=== PATIENT | female | born 1995 | race African-American/Black ===

== ENCOUNTER 2016-08-27 17:52 | Emergency (ER) | payer OTHER ==
[2016-08-27 18:01] VITALS: TEMP 97.9; BMI 22.8
--- NOTE | 2016-08-27 19:28 | PDOC ---
History of Present Illness - General Chief Complaint: Vaginal Bleeding Stated Complaint: PCP SENT/ECTOPIC Time Seen by Provider: 08/27/16 19:21 History Source: Patient - History of Present Illness Initial Comments: 08/27/16 22:32 21-year-old female 2 para 0 presents to the emergency department complaining of suprapubic abdominal discomfort 6 hours. Pain is described as 3/ 10 dull nonradiating intermittent discomfort. Patient denies any nausea/vomiting , fever/chills/diarrhea, flank pains, chest pain, shortness of breath, vaginal bleed or discharge, urinary symptoms: Frequency/urgency/hesitancy, burning upon urination. Patient was seen at an urgent care center today and was sent to the emergency department for ?ectopic. LMP: 08/02/2016 Past History - Past Medical History Allergies/Adverse Reactions: Allergies Allergy/AdvReac Type Severity Reaction Status Date / Time No Known Allergies Allergy Verified 08/27/16 17:58 Home Medications: Ambulatory Orders Albuterol Sulfate Inhaler - [Ventolin Hfa Inhaler -] 1 - 2 inh PO QID 08/27/16 Asthma: Yes - Psycho/Social/Smoking Cessation Hx Suicidal Ideation: No Smoking History: Never smoked Review of Systems - Review of Systems Able to Perform ROS?: Yes Comments:: 08/27/16 22:31 CONSTITUTIONAL: Absent: fever, chills, diaphoresis, generalized weakness, malaise, loss of appetite HEENT: Absent: rhinorrhea, nasal congestion, throat pain, throat swelling, difficulty swallowing, mouth swelling, ear pain, eye pain, visual Changes CARDIOVASCULAR: Absent: chest pain, loss of consciousness, palpitations, irregular heart rate, peripheral edema RESPIRATORY: Absent: cough, shortness of breath, dyspnea with exertion, orthopnea, wheezing, stridor, hemoptysis GASTROINTESTINAL: +suprapubic abdominal pain Absent: abdominal distension, nausea, vomiting, diarrhea, constipation, melena, hematochezia GENITOURINARY: Absent: dysuria, frequency, urgency, hesitancy, hematuria, flank pain, genital pain MUSCULOSKELETAL: Absent: myalgia, arthralgia, joint swelling SKIN: Absent: rash, itching, pallor HEMATOLOGIC/IMMUNOLOGIC: Absent: easy bleeding, easy bruising, lymphadenopathy, frequent infections ENDOCRINE: Absent: unexplained weight gain, unexplained weight loss, heat intolerance, cold intolerance NEUROLOGIC: Absent: headache, focal weakness or paresthesias, dizziness, unsteady gait, seizure, mental status changes, bladder or bowel incontinence PSYCHIATRIC: Absent: anxiety, depression, suicidal or homicidal ideation, hallucinations. Is the patient limited Thai proficient: No *Physical Exam - Vital Signs Last Vital Signs Temp Pulse Resp BP Pulse Ox 97.9 F 75 19 108/64 99 08/27/16 17:58 08/27/16 17:58 08/27/16 17:58 08/27/16 17:58 08/27/16 17:58 - Physical Exam Comments: 08/27/16 22:31 GENERAL: Well developed, well nourished. Awake and alert. No acute distress. HEENT: Normocephalic, atraumatic. PERRLA, EOMI. No conjunctival pallor. Sclera are non- icteric. Moist mucous membranes. Oropharynx is clear. NECK: Supple. Full ROM. No JVD. Carotid pulses 2+ and symmetric, without bruits. No thyromegaly. No lymphadenopathy. CARDIOVASCULAR: Regular rate and rhythm. No murmurs, rubs, or gallops. Distal pulses are 2+ and symmetric. PULMONARY: No evidence of respiratory distress. Lungs clear to auscultation bilaterally. No wheezing, rales or rhonchi. ABDOMINAL: Soft. Non-tender. Non-distended. No rebound or guarding. No organomegaly. Normoactive bowel sounds. MUSCULOSKELETAL Normal range of motion at all joints. No bony deformities or tenderness. No CVA tenderness. EXTREMITIES: No cyanosis. No clubbing. No edema. No calf tenderness. SKIN: Warm and dry. Normal capillary refill. No rashes. No jaundice. NEUROLOGICAL: Alert, awake, appropriate. Cranial nerves 2-12 intact. No deficits to light touch and temperature in face, upper extremities and lower extremities. No motor deficits in the in face, upper extremities and lower extremities. Normoreflexic in the upper and lower extremities. Normal speech. Toes are down- going bilaterally. Gait is normal without ataxia. PSYCHIATRIC: Cooperative. Good eye contact. Appropriate mood and affect. Pelvic: External genitalia normal without lesions. Vaginal vault is clear without blood or discharge. Cervix is long and closed. ED Treatment Course - LABORATORY CBC & Chemistry Diagram: 08/27/16 19:32 08/27/16 19:32 *DC/Admit/Observation/Transfer Diagnosis at time of Disposition: Threatened - Discharge Dispostion Disposition: HOME Condition at time of disposition: Stable Admit: No - Referrals Referrals: Laura Crooks MD [Staff Physician] - - Patient Instructions Printed Discharge Instructions: DI for Threatened Additional Instructions: Pelvic rest Increase fluids You must return to the emergency department for another blood tests: Beta hCG. Today's beta hCG is 1457.3 Your preliminary transvaginal ultrasound this evening shows that there are no intrauterine gestational sac. Heterogeneous echotexture of the endometrium in the lower uterine segment suggestive blood clots. There is also minimal fluid within the cervical canal. Small amount of free fluid in the cul-de-sac. Both ovaries appear unremarkable. No adnexal mass is identified.
--- NOTE | 2016-08-27 19:40 | PDOC ---
*Physical Exam - Vital Signs Last Vital Signs Temp Pulse Resp BP Pulse Ox 97.9 F 75 19 108/64 99 08/27/16 17:58 08/27/16 17:58 08/27/16 17:58 08/27/16 17:58 08/27/16 17:58 ED Treatment Course - LABORATORY CBC & Chemistry Diagram: 08/27/16 19:32 08/27/16 19:32 Medical Decision Making - Medical Decision Making 08/27/16 19:40 Pt seen by the Advanced Practice Provider under my direct supervision Ancillary studies reviewed I agree with plan as outlined by the Advanced Practice Provider MINE Saldana *DC/Admit/Observation/Transfer Diagnosis at time of Disposition: Threatened - Discharge Dispostion Disposition: HOME Condition at time of disposition: Stable - Referrals Referrals: Laura Crooks MD [Staff Physician] - - Patient Instructions Printed Discharge Instructions: DI for Threatened Additional Instructions: Pelvic rest Increase fluids You must return to the emergency department for another blood tests: Beta hCG. Today's beta hCG is 1457.3 Your preliminary transvaginal ultrasound this evening shows that there are no intrauterine gestational sac. Heterogeneous echotexture of the endometrium in the lower uterine segment suggestive blood clots. There is also minimal fluid within the cervical canal. Small amount of free fluid in the cul-de-sac. Both ovaries appear unremarkable. No adnexal mass is identified.
[2016-08-27 19:53] LABS: BASOPHIL 0.7 % (0-2.0); EOSINOPHIL 3.7 % (0-4.5); MCH 30.7 pg (25.7-33.7); MCHC 33.8 g/dl (32.0-36.0); MEAN CELL VOLUME 90.7 fl (80-96); MEAN PLT VOLUME 9.1 fl (7.5-11.1); NEUTROPHILS 53.4 % (42.8-82.8); PLATELET COUNT 209 K/MM3 (134-434); RDW 12.6 % (11.6-15.6); WHITE BLOOD COUNT 9.1 K/mm3 (4.0-10.0)
[2016-08-27 20:37] LABS: ALBUMIN 4.4 g/dl (3.4-5.0); ANION GAP 11 (8-16); BILIRUBIN,TOTAL 0.2 mg/dL (0.2-1.0); CALCIUM 9.7 mg/dL (8.5-10.1); CO2 23 mmol/L (21-32); COCKROFT - GAULT 125.7575; CREATININE 0.7 mg/dL (0.55-1.02); GLUCOSE,RANDOM 80 mg/dL (74-106); SGOT/AST 18 U/L (15-37); SGPT/ALT 16 U/L (12-78); TOT PROT 7.8 g/dl (6.4-8.2)
[2016-08-27 20:38] LABS: ALK PHOS 95 U/L (45-117)
[2016-08-27 21:15] LABS: URINE APPEARANCE SLCLOUDY; URINE BILIRUBIN NEGATIVE (NEGATIVE); URINE COLOR YELLOW; URINE GLUCOSE (UA) NEGATIVE (NEGATIVE); URINE KETONE NEGATIVE (NEGATIVE); URINE LEUK ESTERASE NEGATIVE (NEGATIVE); URINE NITRITE NEGATIVE (NEGATIVE); URINE UROBILINOGEN NEGATIVE E.U./dl (0.2-1.0)
[2016-08-27 21:16] LABS: URINE BLOOD 3+ (NEGATIVE); URINE PROTEIN 1+ (NEGATIVE)
[2016-08-27 21:19] LABS: URINE MUCUS FEW; URINE RBC 18 /hpf (0-3); URINE WBC 3 /hpf (3-5)
[2016-08-27 23:10] VITALS: BP 110/67; PULSE 66
== END 2016-08-27 23:10 | disposition home or self-care (01) ==
LOC: JER 17:52
DX: O20.0 Threatened abortion (principal); Z3A.00 Weeks of gestation of pregnancy not specified
CPT/HCPCS: 36415; 76817-TC; 80053; 81003; 81015; 84702; 85025; 86850; 86900; 86901; 99284-25

== ENCOUNTER 2016-08-29 20:31 | Emergency (ER) | payer OTHER ==
[2016-08-29 20:40] VITALS: BMI 22.8
--- NOTE | 2016-08-29 20:48 | PDOC ---
History of Present Illness - General History Source: Patient Exam Limitations: No Limitations - History of Present Illness Initial Comments: 08/29/16 22:14 The patient is a 21 year old female, A1 who is currently 3 weeks with a significant past medical history of asthma who presents to the emergency department with vaginal bleeding and abdominal cramping. She ranks her abdominal pain a 7/10 in pain intensity. She reports being in this ER with similar symptoms about 48 hours prior with a concern for an ectopic . She reports having heavy bleeding continuing since her last office visit. She denies recent fevers, chills, headache or dizziness. She denies recent nausea, vomit, diarrhea or constipation. She denies recent dysuria, frequency, urgency or hematuria. She denies recent chest pain or shortness of breath. She denies any care. Allergies: NKA Past surgical history: None reported. Social history: Former smoker.. Denies EtOH use and recreational drug use. <Dov Gómez - Last Filed: 08/29/16 22:14> <Rayna Heath - Last Filed: 08/30/16 02:49> <Kayla Hall - Last Filed: 08/31/16 01:44> - General Chief Complaint: Vaginal Bleeding Stated Complaint: FOLLOW UP/[facility] [place] Time Seen by Provider: 08/29/16 20:46 Past History <oDv Gómez - Last Filed: 08/29/16 22:14> <Rayna Heath - Last Filed: 08/30/16 02:49> - Past Medical History Asthma: Yes - Reproductive History (#): 2 Therapeutic (s) & number: No Spontaneous : 1 - Immunization History Immunization Up to Date: Yes - Psycho/Social/Smoking Cessation Hx Suicidal Ideation: No Smoking History: Never smoked Have you smoked in the past 12 months: No Information on smoking cessation initiated: No Hx Alcohol Use: No Drug/Substance Use Hx: No <Kayla Hall - Last Filed: 08/31/16 01:44> - Past Medical History Allergies/Adverse Reactions: Allergies Allergy/AdvReac Type Severity Reaction Status Date / Time No Known Allergies Allergy Verified 08/29/16 20:40 Home Medications: Ambulatory Orders Albuterol Sulfate Inhaler - [Ventolin Hfa Inhaler -] 1 - 2 inh PO QID 08/27/16 Review of Systems - Review of Systems Able to Perform ROS?: Yes Comments:: 08/29/16 22:14 CONSTITUTIONAL: Absent: fever, chills, diaphoresis, generalized weakness, malaise, loss of appetite HEENT: Absent: rhinorrhea, nasal congestion, throat pain, throat swelling, difficulty swallowing, mouth swelling, ear pain, eye pain, visual Changes CARDIOVASCULAR: Absent: chest pain, syncope, palpitations, irregular heart rate, lightheadedness , peripheral edema RESPIRATORY: Absent: cough, shortness of breath, dyspnea with exertion, orthopnea, wheezing, stridor, hemoptysis GASTROINTESTINAL: +abdominal cramping. Absent: nausea, vomiting, diarrhea, constipation, melena, hematochezia GENITOURINARY: +vaginal bleeding. Absent: dysuria, frequency, urgency, hesitancy, hematuria, flank pain, genital pain MUSCULOSKELETAL: Absent: myalgia, arthralgia, joint swelling SKIN: Absent: rash, itching, pallor HEMATOLOGIC/IMMUNOLOGIC: Absent: easy bleeding, easy bruising, lymphadenopathy, frequent infections ENDOCRINE: Absent: unexplained weight gain, unexplained weight loss, heat intolerance, cold intolerance NEUROLOGIC: Absent: headache, focal weakness or paresthesias, dizziness, unsteady gait, seizure, mental status changes, bladder or bowel incontinence PSYCHIATRIC: Absent: anxiety, depression, suicidal or homicidal ideation, hallucinations. <Dov Gómez - Last Filed: 08/29/16 22:14> *Physical Exam - Vital Signs Last Vital Signs Temp Pulse Resp BP Pulse Ox 98.4 F 81 18 121/51 100 08/29/16 20:34 08/29/16 20:34 08/29/16 20:34 08/29/16 20:34 08/29/16 20:34 - Physical Exam Comments: 08/29/16 22:14 PE - Comprehensive GENERAL: Well developed, well nourished, slender. Awake and alert. No acute distress. HEENT: Normocephalic, atraumatic. PERRLA, EOMI. No conjunctival pallor. Sclera are non- icteric. Moist mucous membranes. Oropharynx is clear. NECK: Supple. Full ROM. No JVD. Carotid pulses 2+ and symmetric, without bruits. No thyromegaly. No lymphadenopathy. CARDIOVASCULAR: Regular rate and rhythm. No murmurs, rubs, or gallops. Distal pulses are 2+ and symmetric. PULMONARY: No evidence of respiratory distress. Lungs clear to auscultation bilaterally. No wheezing, rales or rhonchi. ABDOMINAL: Soft. Non-tender. Non-distended. No rebound or guarding. No organomegaly. Normoactive bowel sounds. MUSCULOSKELETAL Normal range of motion at all joints. No bony deformities or tenderness. No CVA tenderness. EXTREMITIES: No cyanosis. No clubbing. No edema. No calf tenderness. SKIN: Warm and dry. Normal capillary refill. No rashes. No jaundice. NEUROLOGICAL: Alert, awake, appropriate. Cranial nerves 2-12 intact. No deficits to light touch and temperature in face, upper extremities and lower extremities. No motor deficits in the in face, upper extremities and lower extremities. Normoreflexic in the upper and lower extremities. Normal speech. Toes are down- going bilaterally. Gait is normal without ataxia. PSYCHIATRIC: Cooperative. Good eye contact. Appropriate mood and affect. <Dov Gómez - Last Filed: 08/29/16 22:14> - Vital Signs Last Vital Signs Temp Pulse Resp BP Pulse Ox 98.4 F 81 18 121/51 100 08/29/16 20:34 08/29/16 20:34 08/29/16 20:34 08/29/16 20:34 08/29/16 20:34 <Rayna Heath - Last Filed: 08/30/16 02:49> - Vital Signs Last Vital Signs Temp Pulse Resp BP Pulse Ox 98.4 F 81 18 121/51 100 08/29/16 20:34 08/29/16 20:34 08/29/16 20:34 08/29/16 20:34 08/29/16 20:34 <Kayla Hall - Last Filed: 08/31/16 01:44> ED Treatment Course - ADDITIONAL ORDERS Additional order review: Laboratory Results 08/29/16 21:16 Beta HCG, Quant 1740.3 <Rayna Heath - Last Filed: 08/30/16 02:49> Medical Decision Making - Medical Decision Making 08/30/16 01:57 21 yo female presents for repeat bhcg -seen on 08/27/16 for threatened AB and had US that did not show an IUP and her bhcg was about 1450 -tonight she returned and her bhcg is 1700 but her trans vaginal US still did not show an IUP but there was concern about left ovarian ectopic -the pt had vaginal cramping and some bleeding but no severe pain Case discussed w Dr Davis who recommended methotrexate and follow up in 1 week for repeat bhcg and US -pt told of the dangers of an ectopic preg and the 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 <Dov Gómez - Last Filed: 08/29/16 22:14> <Rayna Heath - Last Filed: 08/30/16 02:49> <Kayla Hall - Last Filed: 08/31/16 01:44> Diagnosis at time of Disposition: Ectopic Qualifiers: Location of ectopic : ovarian Intrauterine status: without intrauterine Qualified Code(s): O00.20 - Ovarian without intrauterine - Discharge Dispostion Disposition: HOME Condition at time of disposition: Stable - Patient Instructions Printed Discharge Instructions: DI for Ectopic Additional Instructions: IT IS VERY IMPORTANT TO FOLLOW UP WITH THE [employer]PECTING SUPERVISOR IN ONE WEEK. YOU MAY FOLLOWUP AT THE CLINIC AT [address] [place] [address] [phone] OR RETURN TO THE EMERGENCY DEPARTMENT YOU MUST HAVE THE BHCG AND ULTRASOUND REPEATED
[2016-08-30] MEDS ORDERED: METHOTREXATE SODIUM/PF 25 MG/ML VIAL IM ONE (01:48)
[2016-08-30 03:20] VITALS: BP 122/73; PULSE 80; TEMP 98.7
== END 2016-08-30 03:21 | disposition home or self-care (01) ==
LOC: JER 20:31
PROC: 3E023GC Introduction of Other Therapeutic Substance into Muscle, Percutaneous Approach (ICD-10-PCS; principal; 2016-08-29)
DX: O00.20 Ovarian pregnancy without intrauterine pregnancy (principal); Z3A.00 Weeks of gestation of pregnancy not specified
CPT/HCPCS: 36415; 76817-TC; 84702; 99283-25; J9260

== ENCOUNTER 2016-09-14 15:08 | Emergency (ER) | payer OTHER ==
[2016-09-14 15:13] VITALS: BP 110/64; PULSE 86; TEMP 98.3; BMI 22.1
--- NOTE | 2016-09-14 16:59 | PDOC ---
History of Present Illness - General Chief Complaint: [facility] [place] Stated Complaint: LAB VARIANCE Time Seen by Provider: 09/14/16 15:29 History Source: Patient Exam Limitations: No Limitations - History of Present Illness Travel History: No Initial Comments: 09/14/16 16:11 21-year-old female presents the ED for repeat beta-hCG and ultrasound. As per Dr. Crooks patient on 08/29 did receive methotrexate and had a beta hCG of 1500. Patient went to the office today was concerning since patient still had mild tenderness to the suprapubic region and may require second dose of methotrexate. Patient has no complaints of vaginal bleeding, fever, chills, nausea weakness. Timing/Duration: reports: intermittent Quality: reports: mild, cramping Abdominal Pain Onset Location: reports: suprapubic Pain Radiation: reports: no radiation Activities at Onset: reports: none Aggravating Factors: improves with: None Alleviating Factors: improves with: None Past History - Past Medical History Allergies/Adverse Reactions: Allergies Allergy/AdvReac Type Severity Reaction Status Date / Time No Known Allergies Allergy Verified 09/14/16 15:10 Home Medications: Ambulatory Orders Albuterol Sulfate Inhaler - [Ventolin Hfa Inhaler -] 1 - 2 inh PO QID 08/27/16 Asthma: Yes - Reproductive History Is Patient Now?: Yes (#): 2 Para: 0 Therapeutic (s) & number: No Spontaneous : 1 - Immunization History Immunization Up to Date: Yes - Psycho/Social/Smoking Cessation Hx Suicidal Ideation: No Smoking History: Never smoked Have you smoked in the past 12 months: No Hx Alcohol Use: No Drug/Substance Use Hx: No Patient Lives Alone: No Lives with/in: parents Review of Systems - Review of Systems Able to Perform ROS?: Yes Constitutional: No: Symptoms Reported ABD/GI: Yes: Abdominal cramping : No: Discharge Musculoskeletal: No: Symptoms Reported Integumentary: No: Symptoms Reported Neurological: No: Symptoms reported Hematologic/Lymphatic: No: Symptoms Reported *Physical Exam - Vital Signs Last Vital Signs Temp Pulse Resp BP Pulse Ox 98.3 F 86 18 110/64 98 09/14/16 15:10 09/14/16 15:10 09/14/16 15:10 09/14/16 15:10 09/14/16 15:10 - Physical Exam General Appearance: Yes: Nourished, Appropriately Dressed. No: Apparent Distress HEENT: negative: Pale Conjunctivae Neck: positive: Supple Respiratory/Chest: positive: Lungs Clear, Normal Breath Sounds. negative: Respiratory Distress, Accessory Muscle Use Cardiovascular: positive: Regular Rhythm, Regular Rate. negative: Murmur Gastrointestinal/Abdominal: positive: Soft, Tenderness (mild suprapubic) Musculoskeletal: negative: CVA Tenderness Extremity: positive: Normal Capillary Refill Integumentary: positive: Normal Color, Warm, Moist Neurologic: positive: Motor Strength 5/5 (Ambulatory) ED Treatment Course - ADDITIONAL ORDERS Additional order review: Laboratory Results 09/14/16 15:40 Beta HCG, Quant 959.9 - RADIOLOGY Radiology Studies Ordered: Category Date Time Status <14WKS US [US] Stat Ultrasound 09/14/16 15:29 Taken Medical Decision Making - Medical Decision Making 09/14/16 16:17 Patient here for repeat beta hCG and ultrasound. Patient has no complaints of bleeding but has mild mid suprapubic pain on exam. 09/14/16 17:17 Laboratory Tests 08/29/16 09/14/16 21:16 15:40 Beta HCG, Quant 1740.3 959[address] Crooks and states to give methotrexate 83 mg and to have patient follow up on Tuesday in the office. she will review the ultrasound 09/14/16 17:23 Dr. Crooks called back and states there is a questionable left ectopic and recommend patient have a beta hCG done on Tuesday at the clinic and then follow-up with her in the office on Tuesday. *DC/Admit/Observation/Transfer Diagnosis at time of Disposition: Ectopic of ovary - Discharge Dispostion Disposition: HOME Condition at time of disposition: Good - Referrals Referrals: Laura Crooks MD [Staff Physician] - - Patient Instructions Additional Instructions: Please have your blood work for beta hCG done on Tuesday at the clinic so that Dr. Crooks can review on Tuesday to decide if it was effective or you require surgery. please follow-up with Dr. Crooks next Tuesday. Return sooner if symptoms worsen prior to your Follow-up.
[2016-09-14] MEDS ORDERED: METHOTREXATE SODIUM/PF 25 MG/ML VIAL IM ONE (17:16)
== END 2016-09-14 17:57 | disposition home or self-care (01) ==
LOC: JER 15:08
DX: O00.20 Ovarian pregnancy without intrauterine pregnancy (principal)
CPT/HCPCS: 36415; 76801-TC; 76817-TC; 84702; 99283-25; J9260

== ENCOUNTER 2016-09-22 15:21 | Emergency (ER) | payer OTHER ==
[2016-09-22 15:32] VITALS: BMI 22.6
[2016-09-22 17:33] LABS: BASOPHIL 0.8 % (0-2.0); EOSINOPHIL 5.4 % (0-4.5); MCH 30.6 pg (25.7-33.7); MCHC 33.5 g/dl (32.0-36.0); MEAN CELL VOLUME 91.3 fl (80-96); MEAN PLT VOLUME 8.8 fl (7.5-11.1); NEUTROPHILS 40.4 % (42.8-82.8); PLATELET COUNT 202 K/MM3 (134-434); RDW 12.9 % (11.6-15.6); WHITE BLOOD COUNT 5.1 K/mm3 (4.0-10.0)
[2016-09-22 17:35] LABS: URINE APPEARANCE CLOUDY; URINE BILIRUBIN NEGATIVE (NEGATIVE); URINE BLOOD NEGATIVE (NEGATIVE); URINE COLOR LTYELLOW; URINE GLUCOSE (UA) NEGATIVE (NEGATIVE); URINE KETONE NEGATIVE (NEGATIVE); URINE NITRITE NEGATIVE (NEGATIVE); URINE PROTEIN NEGATIVE (NEGATIVE); URINE UROBILINOGEN NEGATIVE E.U./dl (0.2-1.0)
[2016-09-22 17:47] LABS: URINE LEUK ESTERASE TRACE (NEGATIVE)
[2016-09-22 17:48] LABS: URINE BACTERIA RARE /hpf (NONE SEEN); URINE RBC 1 /hpf (0-3); URINE WBC 4 /hpf (3-5)
[2016-09-22 18:22] LABS: ALBUMIN 3.9 g/dl (3.4-5.0); CALCIUM 9.3 mg/dL (8.5-10.1); GLUCOSE,RANDOM 72 mg/dL (74-106)
[2016-09-22 18:28] LABS: ALK PHOS 87 U/L (45-117); ANION GAP 8 (8-16); BILIRUBIN,TOTAL 0.3 mg/dL (0.2-1.0); CO2 26 mmol/L (21-32); COCKROFT - GAULT 145.6475; CREATININE 0.6 mg/dL (0.55-1.02); SGOT/AST 18 U/L (15-37); SGPT/ALT 15 U/L (12-78); TOT PROT 7.4 g/dl (6.4-8.2)
--- NOTE | 2016-09-22 19:13 | PDOC ---
History of Present Illness - General Chief Complaint: Revisit, Lab Variance Stated Complaint: LAB VARIANCE (PCP SENT) Time Seen by Provider: 09/22/16 15:56 History Source: Patient Exam Limitations: No Limitations - History of Present Illness Initial Comments: 09/22/16 19:11 21-year-old female, 2 para 0, last menstrual period 07/26/2016, was diagnosed with a left adnexal ectopic and has received 2 injections of methotrexate presents to the ER with persistent mild left lower quadrant pain radiating to the back. Patient was seen and evaluated by Dr. Davis of [facility] and referred to the ER for additional testing and an additional dose of methotrexate. Patient denies fever/chills/dysuria/hematuria/nausea/vomiting/ diarrhea. Abdominal pain is mild, intermittent, radiates to the back, without alleviating exacerbating factors. Pain is similar in nature and character to the patient's previous symptoms. REVIEW OF SYSTEMS CONSTITUTIONAL: No fever, no chills, no fatigue EYES: No visual changes ENT: No ear pain, no sore throat CARDIOVASCULAR: No chest pain, no palpitations RESPIRATORY: No cough, no SOB GI: + abdominal pain, no nausea, no vomiting, no constipation, no diarrhea GENITOURINARY: + Left adnexal ectopic ; No dysuria, no frequency, no hematuria MUSKULOSKELETAL: No backpain, no joint pain, no myalgias SKIN: No rash NEURO: No headache EXAMINATION CONSTITUTIONAL: Well-appearing; well-nourished; in no apparent distress HEAD: Normocephalic; atraumatic EYES: PERRL; EOM intact ENMT: External appears normal; normal oropharynx NECK: Supple; non-tender; no cervical lymphadenopathy CARD: Normal S1, S2; no murmurs, rubs, or gallops RESP: Normal chest excursion with respiration; breath sounds clear and equal bilaterally; no wheezes, rhonchi, or rales ABD: Soft, non-distended; + mild left lower pelvic tenderness to deep palpation ; no palpable organomegaly, no palpable hernias; no CVA tenderness bilaterally; EXT: Normal ROM in all four extremities; non-tender to palpation; distal pulses intact SKIN: Warm, dry, no rash NEURO: No focal neurological deficiencies. Past History - Past Medical History Allergies/Adverse Reactions: Allergies Allergy/AdvReac Type Severity Reaction Status Date / Time peanut Allergy Swelling Verified 09/22/16 15:32 Home Medications: Ambulatory Orders Acetaminophen [Tylenol] 650 mg PO DAILY PRN 09/22/16 Ibuprofen [Motrin -] 600 mg PO TID PRN 09/22/16 Asthma: Yes - Reproductive History Is Patient Now?: Yes (#): 2 Para: 0 Cervical CA: No Dysfunctional Uterine Bleeding: No Ectopic : No Endometrial CA: No Polycystic Ovaries: No Therapeutic (s) & number: No (1 etopic) Tubal Ligation: No Spontaneous : 1 - Immunization History Immunization Up to Date: Yes - Psycho/Social/Smoking Cessation Hx Anxiety: No Suicidal Ideation: No Smoking History: Never smoked Have you smoked in the past 12 months: No Hx Alcohol Use: Yes (SOCIAL) Drug/Substance Use Hx: No Substance Use Type: None *Physical Exam - Vital Signs Last Vital Signs Temp Pulse Resp BP Pulse Ox 98.3 F 77 20 113/54 99 09/22/16 15:29 09/22/16 15:29 09/22/16 15:29 09/22/16 15:29 09/22/16 16:19 ED Treatment Course - LABORATORY CBC & Chemistry Diagram: 09/22/16 16:01 09/22/16 16:23 - ADDITIONAL ORDERS Additional order review: Laboratory Results 09/22/16 09/22/16 17:20 16:23 Sodium 138 Potassium 4.3 Chloride 104 Carbon Dioxide 26 Anion Gap 8 BUN 8 Creatinine 0.6 Creat Clearance w eGFR > 60 Random Glucose 72 L Calcium 9.3 Total Bilirubin 0.3 D AST 18 ALT 15 Alkaline Phosphatase 87 Total Protein 7.4 Albumin 3.9 Urine Color Ltyellow Urine Appearance Cloudy Urine pH 5.0 Urine Protein Negative Urine Glucose (UA) Negative Urine Ketones Negative Urine Blood Negative Urine Nitrite Negative Urine Bilirubin Negative Urine Urobilinogen Negative Ur Leukocyte Esterase Trace H Urine RBC 1 Urine WBC 4 Ur Epithelial Cells Many Urine Bacteria Rare 09/22/16 16:01 RBC 4.40 MCV 91.3 MCHC 33.5 RDW 12.9 MPV 8.8 Neutrophils % 40.4 L D Lymphocytes % 46.9 H D Monocytes % 6.5 Eosinophils % 5.4 H Basophils % 0.8 - RADIOLOGY Radiology Studies Ordered: Category Date Time Status TRANSVAGINAL US PREG [US] Stat Ultrasound 09/22/16 16:08 Completed Medical Decision Making - Medical Decision Making 09/22/16 20:51 Patient is well-appearing 21-year-old female with known history of left adnexal ectopic presented for repeat methotrexate injection. Beta-hCG is noted to have been decreased. Transvaginal ultrasound reveals persistent left adnexal mass with trace free fluid. There is no evidence of rupture at this time. Will discharge with ectopic precautions and follow-up. *DC/Admit/Observation/Transfer Diagnosis at time of Disposition: Ectopic of ovary Qualifiers: Intrauterine status: without intrauterine Qualified Code(s) : O00.20 - Ovarian without intrauterine - Discharge Dispostion Disposition: HOME Condition at time of disposition: Stable - Referrals Referrals: Laura Crooks MD [Primary Care Provider] - - Patient Instructions Printed Discharge Instructions: DI for Ectopic
[2016-09-22] MEDS ORDERED: METHOTREXATE SODIUM/PF 25 MG/ML VIAL IM ONE (19:43)
[2016-09-22 20:34] VITALS: BP 115/70; PULSE 69; TEMP 98.2
== END 2016-09-22 20:53 | disposition home or self-care (01) ==
LOC: JER 15:21
PROC: 3E023GC Introduction of Other Therapeutic Substance into Muscle, Percutaneous Approach (ICD-10-PCS; principal; 2016-09-22)
DX: O00.20 Ovarian pregnancy without intrauterine pregnancy (principal)
CPT/HCPCS: 36415; 76817-TC; 80053; 81003; 81015; 84702; 85025; 86850; 86900; 86901; 87086; 99284-25; J9260

== ENCOUNTER → 2016-09-23 | Emergency (ER) | payer OTHER ==
[~2016-09-23] MED LIST: ONDANSETRON 4 MG/2 ML VIAL IVPUSH ONE; ONDANSETRON 4 MG/2 ML VIAL ONE; OXYCODONE/APAP 5/325MG COMBO TABLET ONE; OXYCODONE/APAP 5/325MG COMBO TABLET PO ONE; SODIUM CHLORIDE 0.9% 1000 ML INFUS.BAG IV ONE
[2016-09-23 18:04] VITALS: BMI 22.6
--- NOTE | 2016-09-23 18:54 | PDOC ---
History of Present Illness - General History Source: Patient, Old Records Exam Limitations: No Limitations - History of Present Illness Initial Comments: The patient is a 21 year old female with a significant past medical history of 2 para 0, last menstrual period 07/26/16, who presents to the emergency department today for further evaluation of lower left quadrant pain secondary to ectopic today. The patient states that she was at work today during onset of symptoms. She describes the pain as sharp and constant with intermittent worsening spells. The patient came to this ED yesterday and was discharged home after her Beta HC levels went down. The patient reports history of cramps but denies ever having cramps this severe. She reports associated dizziness but denies any bleed. The patient denies fever, chills, and sweats. The patient denies nausea, vomiting, and diarrhea. The patient denies chest pain, cough, and shortness of breath. PCP: Dr. Nabeel Zepeda [phone] PAST MEDICAL HISTORY: A1 PAST SURGICAL HISTORY: No significant history reported FAMILY HISTORY: No pertinent history reported SOCIAL HISTORY: None reported ALLERGIES: Peanuts MEDICATIONS: 2 doses of methotrexate ( 08/29/16, 09/22/16) <Nicholas Akins - Last Filed: 09/23/16 20:38> <Tonja Bhatia - Last Filed: 09/23/16 21:24> - General Chief Complaint: Pain Stated Complaint: ABDOMINAL PAIN Past History <Nicholas Akins - Last Filed: 09/23/16 20:38> - Past Medical History Asthma: Yes Other medical history: etopic LMP JULY 2016. - Reproductive History (#): 2 Para: 0 Cervical CA: No Dysfunctional Uterine Bleeding: No Ectopic : No Endometrial CA: No Polycystic Ovaries: No Therapeutic (s) & number: No (1 etopic) Tubal Ligation: No Spontaneous : 1 - Immunization History Immunization Up to Date: Yes - Psycho/Social/Smoking Cessation Hx Anxiety: No Suicidal Ideation: No Smoking History: Never smoked Have you smoked in the past 12 months: No Information on smoking cessation initiated: No Hx Alcohol Use: No Drug/Substance Use Hx: No Substance Use Type: None <Tonja Bhatia - Last Filed: 09/23/16 21:24> - Past Medical History Allergies/Adverse Reactions: Allergies Allergy/AdvReac Type Severity Reaction Status Date / Time peanut Allergy Swelling Verified 09/23/16 18:04 Home Medications: Ambulatory Orders Acetaminophen [Tylenol] 650 mg PO DAILY PRN 09/22/16 Ibuprofen [Motrin -] 600 mg PO TID PRN 09/22/16 Review of Systems - Review of Systems Able to Perform ROS?: Yes Comments:: GENERAL/CONSTITUTIONAL: No fever or chills. No weakness. HEAD, EYES, EARS, NOSE AND THROAT: No change in vision. No ear pain or discharge. No sore throat. GASTROINTESTINAL: (+) LLQ abdominal pain. No nausea, vomiting, diarrhea or constipation. GENITOURINARY: No dysuria, frequency, or change in urination. CARDIOVASCULAR: No chest pain or shortness of breath. RESPIRATORY: No cough, wheezing, or hemoptysis. MUSCULOSKELETAL: No joint or muscle swelling or pain. No neck or back pain. SKIN: No rash NEUROLOGIC: No headache, vertigo, loss of consciousness, or change in strength/ sensation. ENDOCRINE: No increased thirst. No abnormal weight change. HEMATOLOGIC/LYMPHATIC: No anemia, easy bleeding, or history of blood clots. ALLERGIC/IMMUNOLOGIC: No hives or skin allergy. <Nicholas Akins - Last Filed: 09/23/16 20:38> *Physical Exam - Vital Signs Last Vital Signs Temp Pulse Resp BP Pulse Ox 98.7 F 87 18 112/76 100 09/23/16 18:02 09/23/16 18:02 09/23/16 18:02 09/23/16 18:02 09/23/16 18:02 - Physical Exam Comments: GENERAL: Awake, alert, and fully oriented, in no acute distress HEAD: No signs of trauma EYES: PERRLA, EOMI, sclera anicteric, conjunctiva clear ENT: Auricles normal inspection, nares patent, Moist mucosa NECK: Normal ROM, supple, no lymphadenopathy, JVD, or masses LUNGS: Breath sounds equal, clear to auscultation bilaterally. No wheezes, and no crackles HEART: Regular rate and rhythm, normal S1 and S2, no murmurs, rubs or gallops ABDOMEN: (+) Suprapubic and lower left quadrant pain on palpation. Soft, normoactive bowel sounds. No guarding, no rebound. No masses EXTREMITIES: Normal range of motion, no edema. No clubbing or cyanosis. No cords, erythema, or tenderness NEUROLOGICAL: Normal speech SKIN: Warm, Dry, normal turgor, no rashes or lesions noted. <Nicholas Akins - Last Filed: 09/23/16 20:38> - Vital Signs Last Vital Signs Temp Pulse Resp BP Pulse Ox 98.7 F 87 18 112/76 100 09/23/16 18:02 09/23/16 18:02 09/23/16 18:02 09/23/16 18:02 09/23/16 18:02 <Tonja Bhatia - Last Filed: 09/23/16 21:24> ED Treatment Course - LABORATORY CBC & Chemistry Diagram: 09/23/16 19:28 09/23/16 19:28 - RADIOLOGY Radiograph Interpretation: EXAM#: TYPE/EXAM: RESULT: [id number] US/TRANSVAGINAL US PREG Left ectopic. Pain. Rule out fracture Pelvis ultrasound, transvesical and transvaginal. The uterus measures 7.7 x 4.3 cm and it appears unremarkable. Endometrial stripe measures 6.5 mm in thickness which is within normal limits. No intrauterine gestation sac is identified. The right ovary measures 3.2 x 1.5 cm with a few small cysts/ follicles and normal vascular flow. Left ovary measures 5.6 x 3.6 cm with a large complex cyst/hemorrhagic cyst again seen measuring 4.6 x 3.1 cm. An adjacent left adnexal masslike density is again seen measuring 3.6 x 2.3 cm that has increased in size since see the prior examination where it measured 2.3 x 1.7 cm. No pole is identified. There is a small amount of free fluid in the cul-de-sac Impression: Persistent complex/hemorrhagic left ovarian cyst measuring 4.6 x 3.1 cm. Persistent left paraovarian/adnexal masslike density that has increased in size since the prior examination, now measuring 3.6 x 2.3 cm compatible with previously described ectopic . A small amount of free fluid in the cul-de-sac has slightly increased since see the prior examination Reported By: Kiana Aviles MD 09/23/162025 <Nicholas Akins - Last Filed: 09/23/16 20:38> - LABORATORY CBC & Chemistry Diagram: 09/23/16 19:28 09/23/16 19:28 - RADIOLOGY Radiology Studies Ordered: Category Date Time Status TRANSVAGINAL US PREG [US] Stat Ultrasound 09/23/16 18:26 Ordered <Tonja Bhatia - Last Filed: 09/23/16 21:24> Medical Decision Making - Medical Decision Making 09/23/16 18:[address] Rodriguez placed. [phone] 09/23/16 18:47 Dr. Rodriguez called into ED. Case discussed. Will wait for studies to come back and will call again. 09/23/16 20:[address] Rodriguez. Case discussed. <Nicholas Akins - Last Filed: 09/23/16 20:38> - Medical Decision Making 09/23/16 18:44 21 yo F ( misscarriage) here with known left sided ectopic, diagnosed on , given 3 doses of methotrexate, most recent yestereday now with worsenign lower abd pain. had crampy feeling, now severe pain, no prior pain this bad. no radiation, comes in waves. did feel dizzy and lightheaded at initial pain. no f/ c no vaginal bleeding. no loc. follows with Dr. Nieto. on exam awake alert. lungs clear. heart RRR no m/r/g. abd soft mild suprapubic ttp, llq ttp. no rebound no guarding. plan r/o worsening ectopic, or failed mtx vs side effects of will d/w Dr. Nieto, labs tvus. bedius us r/o free fluid. 09/23/16 20:54 d/w dr lópez, [facility] continueing to decreased to 4oo's. d/w rosa regarding mild increase size, attributed to bleeding and clot formation within the tube. rosa request dc home if pain controlled and return in 48 hours for rpt hcg and us. d/w pt . given percocet for pain. will take here, would not like rx for percocet will takemotrin at home. <Tonja Bhatia - Last Filed: 09/23/16 21:24> *DC/Admit/Observation/Transfer - Attestations Scribe Attestion: Documentation prepared by Nicholas Akins, acting as medical office technologist for Tonja Bhatia MD. <Nicholas Akins - Last Filed: 09/23/16 20:38> - Discharge Dispostion Admit: No <Tonja Bhatia - Last Filed: 09/23/16 21:24> Diagnosis at time of Disposition: Ectopic - Discharge Dispostion Disposition: HOME Condition at time of disposition: Improved - Referrals Referrals: Laura Crooks MD [Primary Care Provider] - - Patient Instructions Printed Discharge Instructions: Ectopic Additional Instructions: you need to return to emergency room in 48 hours for a repeat blood test and ultrasound. return sooner for worsening pain , severe bleeding, feeling lightheaded or any concerns. you should also follow up with Dr. López next week as scheduled.
[2016-09-23 19:48] LABS: BASOPHIL 0.3 % (0-2.0); EOSINOPHIL 1.3 % (0-4.5); MEAN CELL VOLUME 90.9 fl (80-96); MEAN PLT VOLUME 8.7 fl (7.5-11.1); NEUTROPHILS 66.9 % (42.8-82.8); PLATELET COUNT 196 K/MM3 (134-434); RDW 12.8 % (11.6-15.6); WHITE BLOOD COUNT 7.9 K/mm3 (4.0-10.0)
[2016-09-23 20:05] LABS: ALBUMIN 3.9 g/dl (3.4-5.0); ALK PHOS 82 U/L (45-117); ANION GAP 9 (8-16); BILIRUBIN,TOTAL 0.3 mg/dL (0.2-1.0); CALCIUM 8.9 mg/dL (8.5-10.1); CO2 25 mmol/L (21-32); COCKROFT - GAULT 124.8395; CREATININE 0.7 mg/dL (0.55-1.02); GLUCOSE,RANDOM 72 mg/dL (74-106); SGOT/AST 17 U/L (15-37); SGPT/ALT 15 U/L (12-78); TOT PROT 7.1 g/dl (6.4-8.2)
[2016-09-23 22:13] VITALS: BP 106/66; PULSE 75; TEMP 98.3
== END | disposition home or self-care (01) ==
LOC: JER 17:58
PROC: 3E033GC Introduction of Other Therapeutic Substance into Peripheral Vein, Percutaneous Approach (ICD-10-PCS; principal; 2016-09-23)
DX: O26.891 Other specified pregnancy related conditions, first trimester (principal); Z3A.00 Weeks of gestation of pregnancy not specified; O00.90 Unspecified ectopic pregnancy without intrauterine pregnancy; J45.909 Unspecified asthma, uncomplicated
CPT/HCPCS: 36415; 76817-TC; 80053; 84702; 85025; 99283-25

== ENCOUNTER 2016-09-25 11:13 | Observation (INO) | payer OTHER ==
[2016-09-25 11:30] VITALS: BP 113/61; PULSE 87; TEMP 98.1; BMI 22.6
--- NOTE | 2016-09-25 13:23 | PDOC ---
History of Present Illness - General Chief Complaint: Pain Stated Complaint: LAB VARIANCE Time Seen by Provider: 09/25/16 11:49 History Source: Patient Exam Limitations: No Limitations - History of Present Illness Travel History: No Initial Comments: 09/25/16 13:18 21 yr old female presents to the ED for repeat beta hCG along with those transvaginal ultrasound. Patient states had an ectopic in August that required a received 2 doses of methotrexate. Patient received another dose of methotrexate 2 days ago for a beta hCG of 445 and noted a left adnexal mass like density measuring 3.6 x 2.3 that has increased in size since the prior examination which was 2.3 x 1.7. Patient states has had mid suprapubic cramping that has not increased in severity and denies any vaginal bleeding, dysuria, or vaginal discharge. Patient also denies nausea vomiting weakness, or fever. Timing/Duration: reports: constant Quality: reports: mild, cramping Abdominal Pain Onset Location: reports: suprapubic Pain Radiation: reports: no radiation Activities at Onset: reports: none Aggravating Factors: improves with: Movement Alleviating Factors: improves with: None Past History - Travel Traveled outside of the country in the last 30 days: No Close contact w/someone who was outside of country & ill: No - Past Medical History Allergies/Adverse Reactions: Allergies Allergy/AdvReac Type Severity Reaction Status Date / Time peanut Allergy Swelling Verified 09/25/16 11:28 Home Medications: Ambulatory Orders Acetaminophen [Tylenol] 650 mg PO DAILY PRN 09/22/16 Ibuprofen [Motrin -] 600 mg PO TID PRN 09/22/16 Asthma: Yes - Reproductive History Is Patient Now?: Yes (#): 2 Para: 0 Cervical CA: No Dysfunctional Uterine Bleeding: No Ectopic : No Endometrial CA: No Polycystic Ovaries: No Therapeutic (s) & number: No (1 etopic) Tubal Ligation: No Spontaneous : 1 - Immunization History Immunization Up to Date: Yes - Psycho/Social/Smoking Cessation Hx Anxiety: No Suicidal Ideation: No Smoking History: Never smoked Have you smoked in the past 12 months: No Hx Alcohol Use: No Drug/Substance Use Hx: No Substance Use Type: None Patient Lives Alone: No Review of Systems - Review of Systems Able to Perform ROS?: Yes Constitutional: No: Symptoms Reported HEENTM: No: Symptoms Reported Respiratory: No: Symptoms reported Cardiac (ROS): No: Symptoms Reported ABD/GI: Yes: Abdominal cramping : No: Symptoms Reported Musculoskeletal: No: Symptoms Reported Integumentary: No: Symptoms Reported Neurological: No: Symptoms reported *Physical Exam - Vital Signs Last Vital Signs Temp Pulse Resp BP Pulse Ox 98.1 F 87 18 113/61 09/25/16 11:28 09/25/16 11:28 09/25/16 11:28 09/25/16 11:28 - Physical Exam General Appearance: Yes: Nourished, Appropriately Dressed. No: Apparent Distress HEENT: negative: Pale Conjunctivae Cardiovascular: positive: Regular Rhythm, Regular Rate. negative: Murmur Female Pelvic Exam: negative: discharge Gastrointestinal/Abdominal: positive: Soft, Tenderness (mid suprapubic) Musculoskeletal: negative: CVA Tenderness Extremity: positive: Normal Capillary Refill Integumentary: positive: Normal Color, Warm, Moist Neurologic: positive: Motor Strength 5/5 (ambulatory) ED Treatment Course - ADDITIONAL ORDERS Additional order review: Laboratory Results 09/25/16 12:32 Beta HCG, Quant 471.9 - RADIOLOGY Radiology Studies Ordered: Category Date Time Status TRANSVAGINAL ULTRASOUND US [US] Stat Ultrasound 09/25/16 11:57 Ordered Medical Decision Making - Medical Decision Making 09/25/16 12:24 Patient here for repeat beta hCG secondary to ectopic last month. Patient states lower abdominal cramping continues without worsening symptoms. Patient had a beta-hCG of 445 and an increase in size of mass the left adnexa which Dr. Rodriguez states is normal findings. Patient did receive another dose of methotrexate. We'll repeat an hCG along with a transvaginal ultrasound. 09/25/16 13:26 Laboratory Tests 09/23/16 09/25/16 19:28 12:32 Beta HCG, Quant 445.[address] Crooks in regards to increase of beta hCG. 09/25/16 13:42 Ultrasound shows a 3.5 x 2.1 left adnexal soft tissue focus probably in the base of an ectopic . On a prior study a [id number] amount of free complex intraperitoneal fluid probably representing blood was seen within the adnexa bilaterally. There is also 4.4 x 3 similar left ovarian cyst containing subacute blood. The right ovary could not be definitely visualized on this study. There is no intrauterine gestation . Endometrial thickness is 0.4 cm. Case discussed with Dr. Crooks who feels this patient may be discharged home and follow-up in the office on Tuesday. I went over the ultrasound and the slight increase of beta hCG and she feels these are normal findings. After speaking with my attending a call was placed again to Dr. Crooks discuss a consultation by TRACK MAINTAINER prior to discharge or admit for observation. 09/25/16 13:52 Dr. Crooks will come down and assess patient here in the emergency department. pt to be revitalized. Patient states no increase in discomfort. 09/25/16 14:48 Dr. Crooks here for consultation and will take patient to the OR. Patient will remain nothing by mouth until 6 PM. Preop labs ordered. Patient ordered for IV fluids at 75 mL an hour. 09/25/16 15:06 Patient now refusing surgery and wants to sign out AMA since she states does not want to be admitted. Patient is fully alert and oriented and understands the complications and implications by signing out including possible rupture, hypovolemia, anemia, and . *DC/Admit/Observation/Transfer Diagnosis at time of Disposition: Ectopic of ovary Qualifiers: Intrauterine status: without intrauterine Qualified Code(s) : O00.20 - Ovarian without intrauterine - Discharge Dispostion Disposition: AGAINST MEDICAL ADVICE Condition at time of disposition: Unchanged/Unknown - Referrals Referrals: Laura Crooks MD [Staff Physician] - - Patient Instructions Printed Discharge Instructions: DI for Ectopic Additional Instructions: Please understand by signing out AMA that you are in charge facility responsibility of my ability of your medical disposition. I do want to take Motrin and Tylenol as Dr. Crooks recommended until you follow up with her on Tuesday. Otherwise you may return to the ED any given time if your symptoms worsen.
[2016-09-25] MEDS ORDERED: SODIUM CHLORIDE 1,000 ML IV SCH (15:00)
--- NOTE | 2016-09-25 15:11 | HP ---
Past Medical History - Primary Care Physician PCP:: Laura Crooks - Admission Chief Complaint: abdominal pain somrtimes severe LLQ ( scale8/10) ,known ectopic s/p inj Mettotrexate x 3 doses persistent pain & low levels of bhcg persisting. no nausea. no vomiting , no dizziness History of Present Illness: pt has been in ER & in [facility] clinic at [address] [place] [address] for follow up number of times for ectopic on Lt side 08/27/16 bhcg 1457 08/29/16 bhcg 1740 . Sono No iup, Ly adnexal mass adjacent to ut 1.3x1.2 cm . Inj Metotrexat 84 mg im given 09/14/16 bhcg 959.9 Sono No IuP Lt adnexal mass 2.4x2.3 cm , moderate free fluid in cul de sca @nd dose Methotrexate 84 mg im given 09/22/16 bhcg 655.0 09/23/16 bhcg 445.8 sono lt adnexal mass slightly enlarged , moderate fluid , pt was offerred surgery on 09/21/16 in the clinic due to progressively increasing pain, she had declined, & she chose to take Inj Methotrexate again 3rd dose was given in ER 09/25/16 Bhcg 471.9 , sono lt adnexAL mass 5.5X2.1X cm , Lt Ovarian Cyst 4.4X3.1 cm subacute blood, moderate fluid in cul de sac . History Source: Patient, Medical Record Limitations to Obtaining History: No Limitations - Past Medical History POT SANDER: No: Migraine, Seizure Cardiovascular: No: HTN, Murmur Pulmonary: Yes: Asthma Gastrointestinal: No: Gastritis Renal/: No: UTI Reproductive: Yes: Ectopic (current , lt side ectopic), Other (Past MH cycle regular 28-30 days x 4-5 days , no pain Ni h/o contraception). No: PID ...: 2 ...Para: 0 ...Spon : 1 (2014 1st trimester ) ...LMP: 07/26/16 ... Weeks Gestation by Dates: 8 Heme/Onc: No: Anemia Infectious Disease: Yes: Other (declnes .) Psych: No: Addictions, Anxiety, Bipolar, Panic ENT: No: Allergic Rhinitis, Sinusitis Endocrine: No: Diabetes Mellitus, Hyperthyroidism, Hypothyroidism - Past Surgical History Past Surgical History: Yes: None Hx Myomectomy: No Hx Transabdominal Cerclage: No - Smoking History Smoking history: Never smoked Have you smoked in the past 12 months: No - Alcohol/Substance Use Hx Alcohol Use: No History of Substance Use: reports: None Home Medications - Allergies Allergies/Adverse Reactions: Allergies Allergy/AdvReac Type Severity Reaction Status Date / Time peanut Allergy Swelling Verified 09/25/16 11:28 - Home Medications Home Medications: Ambulatory Orders Acetaminophen [Tylenol] 650 mg PO DAILY PRN 09/22/16 Ibuprofen [Motrin -] 600 mg PO TID PRN 09/22/16 Ibuprofen [Motrin -] 600 mg PO TID PRN #21 tablet 09/25/16 Physical Exam-OPERATING ROOM REGISTERED NURSE Vital Signs: Vital Signs Temperature 98.1 F 09/25/16 11:28 Pulse Rate 87 09/25/16 11:28 Respiratory Rate 18 09/25/16 11:28 Blood Pressure 113/61 09/25/16 11:28 O2 Sat by Pulse Oximetry (%) Constitutional: Yes: Well Nourished, Mild Distress Eyes: Yes: WNL HENT: Yes: WNL Neck: Yes: WNL Cardiovascular: Yes: WNL Respiratory: Yes: WNL Gastrointestinal: Yes: WNL, Normal Bowel Sounds, Soft. No: Tenderness, Epigastrium ...Rectal Exam: Yes: WNL Renal/: Yes: . No: CVA Tenderness - Left, CVA Tenderness - Right, Vaginal Bleeding Pelvis: Yes: WNL, Tenderness (lower abdomen LLQ>RLQ) External Genitalia: Yes: Normal Vaginal Exam: Yes: Normal. No: Bleeding Cervix: Yes: Cerv Motion Tenderness Uterus: Yes: Normal, Freely Moveable, Anteverted, Tender Adnexa: Normal: Bilateral, Tender: Bilateral, Not Palpable: Bilateral Breast(s): Yes: WNL Musculoskeletal: Yes: WNL Extremities: Yes: WNL. No: Calf Tenderness Edema: No Integumentary: Yes: WNL Wound/Incision: Yes: Clean/Dry Neurological: Yes: WNL ...Motor Strength: WNL Psychiatric: Yes: WNL Labs: Laboratory Tests 09/25/16 12:32 Beta HCG, Quant 471.9 Laboratory Tests 08/27/16 09/22/16 09/23/16 19:32 17:20 19:28 WBC 7.9 D RBC 4.09 Hgb 12.3 Hct 37.2 Plt Count 196 Neutrophils % 66.9 D Lymphocytes % 26.0 D Monocytes % 5.5 Eosinophils % 1.3 Basophils % 0.3 Sodium Potassium Carbon Dioxide Anion Gap BUN Creatinine Random Glucose AST ALT Urine Protein Negative Urine Ketones Negative Urine Urobilinogen Negative Ur Leukocyte Esterase Trace H Urine RBC 1 Urine WBC 4 Ur Epithelial Cells Many Amorphous Urates Few Urine Bacteria Rare 09/23/16 19:28 WBC RBC Hgb Hct Plt Count Neutrophils % Lymphocytes % Monocytes % Eosinophils % Basophils % Sodium 140 Potassium 4.3 Carbon Dioxide 25 Anion Gap 9 BUN 12 D Creatinine 0.7 Random Glucose 72 L AST 17 ALT 15 Urine Protein Urine Ketones Urine Urobilinogen Ur Leukocyte Esterase Urine RBC Urine WBC Ur Epithelial Cells Amorphous Urates Urine Bacteria Laboratory Tests 08/27/16 08/29/16 09/14/16 19:32 21:16 15:40 Beta HCG, Quant 1457.3 1740.3 959.9 09/22/16 09/23/16 09/25/16 16:01 19:28 12:32 Beta HCG, Quant 655.0 445.8 471.9 Problem List - Problem (1) Ectopic Code(s): O00.90 - UNSPECIFIED ECTOPIC WITHOUT INTRAUTERINE Assessment/Plan 21 yrs s/p chronic ectopic pregn, persistent bhcg 471 miu s/p medical management x 3 doses methotrexate , persistent pain & by son persistent Lt adnexal mass & lt ovarian cyst also seen hemodynamically stable , no change pn cbc hgb/hct persistent pain hence I oferred her surgery, pelviscopic Lt salpingectomy & drainage of ? hemoperitoneum or peritoneal fluid , possiblle Lt Ovarian cystotomy , It will relieve her pain .definite treatment for ectopic pt agreed I rranged for OR . 15 min later pt came & refused surgery , she was once again expaliened r/b/a by me & ER provider she signed ou AMA she will follow up in the clininc on 09/28/16
[2016-09-26 11:14] LABS: ALBUMIN 3.7 g/dl (3.4-5.0); ALK PHOS 70 U/L (45-117); ANION GAP 8 (8-16); BILIRUBIN,TOTAL 0.4 mg/dL (0.2-1.0); CO2 25 mmol/L (21-32); COCKROFT - GAULT 124.8395; CREATININE 0.7 mg/dL (0.55-1.02); GLUCOSE,RANDOM 80 mg/dL (74-106); SGOT/AST 25 U/L (15-37); SGPT/ALT 22 U/L (12-78); TOT PROT 6.6 g/dl (6.4-8.2)
== END 2016-09-25 15:20 | disposition left against medical advice (07) ==
LOC: JER 11:13 → JERBED 14:48
PROVIDERS: ADMIT Obstetrics & Gynecology; ATTEND Obstetrics & Gynecology
DX: O00.90 Unspecified ectopic pregnancy without intrauterine pregnancy (principal)
CPT/HCPCS: 36415; 76830-TC; 80053; 84702; 99282-25; G0378

== ENCOUNTER 2016-10-06 05:08 | Day surgery (SDC) | payer OTHER ==
[2016-10-05 10:16] VITALS: BMI 22.1
--- NOTE | 2016-10-06 08:38 | HP ---
History & Physical Update - History History: Change (see notes) (history update from 09/25/16 . pt signed out aMA on 09/25/16 [facility] 471, subsequently she followed in the clinic on 09/28/16 [facility] 367 , pain was less, but again she called on 09/30/16 stating she has periodically unbearable pain , she can not function, she wants surgery hence she is scheduled for surgery, [facility]16 [facility] 136. today she c/o bleeding, . c/o nausea 2 days ago) - Physical Physical: No Change Currently as noted:: LABS see from 10/04/16 - Assessment Assessment: No Change - Plan Currently as noted:: d&c pellviscopic ectopic management,possible left salpingectomy , possible
[2016-10-06] MEDS ORDERED: MIDAZOLAM HCL 2 MG/2 ML SINGLE DOSE VIAL ONE (12:56)
[2016-10-06] MEDS ORDERED: ceFAZolin SODIUM 1 GM VIAL IVPB ONE ×2 (13:19)
[2016-10-06] MEDS ORDERED: NEOSTIGMINE METHYLSULFATE 0.5 MG/ML - 10 ML MDV ONE (13:34)
[2016-10-06] MEDS ORDERED: HYDROmorphone HCL/PF 1 MG/ML VIAL (FOR PYXIS CHARGING ONLY) ONE (14:23)
[2016-10-06] MEDS ORDERED: IBUPROFEN 400 MG TABLET (FP) PO PRN (14:44)
[2016-10-06] MEDS ORDERED: oxyCODONE HCL 5 MG TABLET PO PRN (14:44)
[2016-10-06] MEDS ORDERED: ACETAMINOPHEN 325 MG TABLET (FP) PO PRN (14:44)
[2016-10-06] MEDS ORDERED: ONDANSETRON 4 MG/2 ML VIAL IVPB PRN (14:44)
--- NOTE | 2016-10-06 14:53 | OP ---
Operative Note - Note: Operative Date: 10/06/16 Pre-Operative Diagnosis: ectopic left chroic ectopic Operation: D&C pelviscopic lysis of omental adhesions, left salpingectomy.irrigation suction of peritoneal cavity Findings: Ut av, ns Omentum adhesion to post uterus aspect, left adnexa & Rt adnexa, lysis of adhesions was done both adnexa & ut free from adhesions Rt Tube free appear normal, rt ovary normal Lt Tube distended between fimbrial end ovary blood clots ,adherent tissuse , also on omentum & on part of sigmoid colon . tissuse removed as much as possible, some still on surface of bowel . Lt salpingectomy done with ligasure. free fluid in cul de aspirated, suction irrigation done Post-Operative Diagnosis: Other (chronic PID, Sean Edward Иван Syndrome) Surgeon: Laura Crooks Facilities Engineer: Nazario Bingham Anesthesiologist/CONTINUOUS STILL OPERATOR: Jane Howard Anesthesia: General Specimens Removed: emc. left tube. adherent tissuse around left adnexa. omental adhesion Estimated Blood Loss (mls): 10 Drains, Volume Out (mls): 100 (mcneil output) Fluid Volume Replaced (mls): 1,000 (2 gm IV Ancef, 100 mg IV doxycyclin ) Operative Report Dictated: Yes
--- NOTE | 2016-10-06 14:58 | SURG ---
Surgery Laborer High Density Press Note Laborer High Density Press: Nazario Bingham PA-C Date of Service: 10/06/16 Diagnosis: ectopic left chronic ectopic ; chronic PID, Sean Edward Иван Syndrome Procedure: D&C pelviscopic lysis of omental adhesions, left salpingectomy.irrigation suction of peritoneal cavity I was present for the entirety of the operative procedure. For further detail, please refer to operative report. Visit type - Case Type Case Type: Scheduled Admission - New patient This patient is new to me today: Yes Date on this admission: 10/06/16
[2016-10-06] MEDS ORDERED: DOXYCYCLINE INJECTION 100 MG in DEXTROSE 5%-WATER - 100 ML IVPB ONE (15:00)
[2016-10-06] MEDS ORDERED: HYDROmorphone HCL CARPU-JECT 1 MG/1 ML DISP.SYRIN IVPUSH PRN ×2 (15:11→15:40)
[2016-10-06] MEDS ORDERED: LACTATED RINGERS SOLUTION 1,000 ML IV SCH (15:15)
[2016-10-06] MEDS ORDERED: HYDROmorphone HCL CARPU-JECT 2 MG/1 ML DISP.SYRIN ONE ×2 (15:27→16:32)
[2016-10-06] MEDS ORDERED: HYDROmorphone HCL CARPU-JECT 2 MG/1 ML DISP.SYRIN IVPUSH ONE ×5 (15:30→16:34)
[2016-10-06] MEDS ORDERED: DOXYCYCLINE HYCLATE 100 MG VIAL IVPB ONE (15:37)
[2016-10-06 17:09] VITALS: TEMP 98.6
[2016-10-06] MEDS ORDERED: ACETAMINOPHEN 325 MG TABLET (FP) ONE (17:52)
[2016-10-06] MEDS ORDERED: oxyCODONE HCL 5 MG TABLET ONE (17:53)
[2016-10-06] MEDS ORDERED: ONDANSETRON 4 MG/2 ML VIAL ONE (18:22)
[2016-10-06 22:10] VITALS: BP 110/62; PULSE 78
--- NOTE | 2016-10-08 14:15 | PATH ---
Surgical Pathology Report Patient Name: KERI NOBLE [facility]. Rec. #: [id number] /Age/Gender: 1995 (Age: 21) / F Account: [id number] Location: [facility] SURGICAL Taken: 10/06/2016 Received: 10/07/2016 Reported: 10/08/2016 Physicians: Laura Crooks M.D. Specimen(s) Received A: ENDOMETRIAL CURETTINGS B: LEFT FALLOPIAN TUBE C: TISSUE AROUND ADNEXA D: OMENTUM ADHESION Clinical History Ectopic History of methotrexate x3 doses medically Ectopic dx given-patient having persistent increasing pain BHCG 136 from 19:00, chronic PID noted during surgery LMP 07/2016 Final Diagnosis A. ENDOMETRIUM, CURETTAGE: FRAGMENTS OF INACTIVE APPEARING ENDOMETRIUM WITH FOCAL STROMAL AND GLANDULAR BREAKDOWN CHANGES. B. FALLOPIAN TUBE, LEFT, SALPINGECTOMY: FALLOPIAN TUBE WITH ACUTE HEMORRHAGE AND CHORIONIC VILLOUS TISSUE CONSISTENT WITH ECTOPIC . CHRONIC SALPINGITIS. C. TISSUE AROUND ADNEXA: BENIGN FIBROCONNECTIVE AND FIBROVASCULAR TISSUE WITH ACTIVE AND CHRONIC INFLAMMATION AND CLOTTED BLOOD. D. OMENTUM ADHESION, EXCISION: BENIGN FATTY AND FIBROVASCULAR TISSUE WITH ACTIVE AND CHRONIC INFLAMMATION CONSISTENT WITH ADHESION. Electronically Signed Sandoval Lovell M.D. Gross Description A. Received in formalin labeled "endometrial curetting" is a 4.0 x 2.5 x 0.4 cm aggregate of torres-brown soft tissue fragments admixed with mucus. The formalin is filtered and the specimen is entirely submitted in 2 cassettes. B. Received in formalin labeled "left fallopian tube" is a 4 cm in length x 1.7 cm diameter fimbriated, dilated portion of fallopian tube. Sectioning reveals red-brown blood clot within the lumen. No definite villous tissue or somatic tissue is grossly identified. [employer] sections are submitted in 3 cassettes as follows: 1-2-fimbria; 3-5-cross sections of fallopian tube. C. Received in formalin labeled "tissue around adnexa" is a 2.8 x 2.5 x 0.3 cm aggregate of torres-brown soft tissue fragments admixed with blood clot. The specimen is entirely submitted in one cassette. D. Received in formalin labeled "omentum adhesion" is a 2.0 x 0.7 x 0.3 cm torres yellow, irregular portion of soft tissue which is submitted in toto in one cassette. 10/07/201610/07/2016
--- NOTE | 2016-10-11 14:02 | OP ---
DATE OF OPERATION: 10/06/2016 PREOPERATIVE DIAGNOSES: Chronic ectopic , left side, and pelvic pain, left lower quadrant. POSTOPERATIVE DIAGNOSES: Left ectopic and chronic pelvic inflammatory disease, omental adhesions. SURGEON: Sudheer Recinos MD [employer] SURGEON: MINE Louise ANESTHESIOLOGIST: Jane Howard MD ANESTHESIA: General. FINDINGS: This is a 21-year-old. She is 2, para 0-0-1-0. LMP was on July 26, 2016 with an 8-weeks . She was diagnosed with ectopic on August 27. Her hCG was 1457 and then, on August 29, it was 1740. Patient received methotrexate injections 84 mg on August 29 and second was repeated again on September 14. At that time, beta hCG was 959. Third was again repeated on September 21, 2016. At that time, the beta hCG was 445. The patient continued to have pain. The sonogram showed that there was a left adnexal mass which was increasing in size. She was admitted on the and she signed AMA and she is readmitted today for the surgery. PROCEDURE: Patient was taken to operating room table and then general anesthesia was given. Lithotomy position was given. Abdomen was painted with ChloraPrep, and the pubis, vagina, and perineum were painted with Betadine and draped in the usual manner. Timeout was done. Pelvic examination was done. Uterus was anteverted, normal size. Cervix was posterior. Right adnexa was not palpable. Left adnexa : Mass was palpable, about 3 x 4 cm. Then, a weighted speculum was put. Anterior lip of the cervix was held with a single-tooth tenaculum. Uterine cavity was sounded. It was 7 cm, and it was dilated. uterine cavity was curetted and contents were sent for pathology examination. HUMI cannula was introduced into the uterine cavity. Weighted speculum and tenaculum were removed. Then, a Blair catheter was placed. I then proceeded with the Laproscpy .. Gloves were changed, and repositioning was done. A small incision was made below the umbilicus. Veress needle was introduced. CO2 was insufflated into the peritoneal cavity. Then, 5-mm trocar and cannula were introduced into the peritoneal cavity. Intraperitoneal insertion was confirmed. There was blood-stained fluid in the cul-de-sac noted. Omental adhesions noted, behind the uterus and on the right adnexa and the left adnexa .. Left adnexa was distended in the fimbria and the lateral ampullary region. There were blood clots in between the left ovary and the tube and also in between the sigmoid colon. Then, a 5-mm trocar and cannula were introduced on the right lower quadrant, and a 12-mm trocar and cannula were introduced on the left lower quadrant. Care was taken to go lateral to the vessels and avoid the vessels. First, omental adhesions lysis was done by taking the grasper from the right side and the LigaSure from the left side. The omentum was from the uterus and left adnexa, tube and ovary and the right tube and ovary. The right tube and ovary were normal and were completely free from the adhesions. Then, the left ovary and tube were released from the adhesions around. It was decided to remove the left tube since the left tube fimbria area was blunted and lateral ampullary region was distended. The blood clots between the tube and ovary were taken out. I attempted to remove as much as possible. Then, between the left tube and ovary, the mesosalpinx was clamped and cauterized and cut with LigaSure in multiple bites until the cornual end of tube was reached and the left tube was freed. Hemostasis was checked on that side and then, with an Endo Catch, the left tube was removed from the left lower quadrant. Trocar was placed back into the peritoneal cavity. Irrigation was done and then , the adherent tissue from bowel was freed and was removed. There was some tissue left behind on the sigmoid colon, which I did not try to remove completely; it was adherent, but the bowel appeared to be free and intact. Irrigation was done. There was no return of blood, and it was clear- fluid on return noted. Suction was done. Once the hemostasis was confirmed, on the left side, the upper side of the abdomen was checked, and there were adhesions between the liver and the undersurface of the diaphragm. Loax-Oamw-Ypffko syndrome was diagnosed. Then, the left trocar and cannula were removed and with the Darcie-Joon needle guided with scope , was entered peritoneal cavity with 0 Vicryl suture , and peritoneum with muscle closure was done. The subcutaneous tissue and the muscles were closed with 2-0 Vicryl at all 3 incisions. Marcaine was infiltrated, and the skin was closed with 4-0 Biosyn intradermal suture. Steri-Strips applied and Band-Aid applied. Patient tolerated procedure well, and HUMI cannula was removed from the cervix. Blair catheter will be removed in the recovery room. ESTIMATED BLOOD LOSS: Was 10 mL URINE OUTPUT: Was 100 mL. It was clear, and the Blair will be removed in the recovery room. Patient received 2 g of IV Ancef prior to the incision and 100 mg of doxycycline she will be getting in the recovery room. SUDHEER RECINOS M.D. [id number] MTDD
== END 2016-10-06 22:00 | disposition home or self-care (01) ==
LOC: JASU-SURG 05:08
PROVIDERS: ATTEND Obstetrics & Gynecology
PROC: 0UDB7ZX Extraction of Endometrium, Via Natural or Artificial Opening, Diagnostic (ICD-10-PCS; 2016-10-06)
PROC: 10T24ZZ Resection of Products of Conception, Ectopic, Percutaneous Endoscopic Approach (ICD-10-PCS; 2016-10-06)
PROC: 0UB64ZZ Excision of Left Fallopian Tube, Percutaneous Endoscopic Approach (ICD-10-PCS; 2016-10-06)
PROC: 0UN64ZZ Release Left Fallopian Tube, Percutaneous Endoscopic Approach (ICD-10-PCS; principal; 2016-10-06 13:00)
PROC: 0UN14ZZ Release Left Ovary, Percutaneous Endoscopic Approach (ICD-10-PCS; 2016-10-06 13:00)
DX: O00.10 Tubal pregnancy without intrauterine pregnancy (principal); N73.9 Female pelvic inflammatory disease, unspecified
CPT/HCPCS: 88304-TC; 88305-TC; 94760

== ENCOUNTER 2020-09-02 08:46 | Emergency (ER) | payer OTHER ==
[2020-09-02 09:00] VITALS: BP 143/94; PULSE 76; TEMP 97.8; BMI 24.0
[2020-09-02] MEDS ORDERED: IBUPROFEN 600 MG TABLET (FP) PO ONE ×2 (09:11→09:14)
[2020-09-02] MEDS ORDERED: DIPHTH,PERTUSS(ACELL),TET 0.5 ML DISP.SYRIN IM ONE (09:43)
[2020-09-02] MEDS ORDERED: morphine CARPU-JECT 2 MG/1 ML DISP.SYRIN IVPUSH ONE (10:12)
[2020-09-02] MEDS ORDERED: LIDOCAINE HCL 1%, 10 MG/ML (20ML VIAL) ONE (10:22)
[2020-09-02] MEDS ORDERED: CEPHALEXIN MONOHYDRATE 500 MG CAPSULE (UD) PO ONE (11:03)
== END 2020-09-02 12:00 | disposition home or self-care (01) ==
LOC: JER 08:46
DX: N64.89 Other specified disorders of breast (principal)
CPT/HCPCS: 99283-25